=== PATIENT | female | born 1990 | race Caucasian/White ===

== ENCOUNTER 2019-09-23 06:06 | Emergency (ER) | payer OTHER ==
[~2019-09-23] VITALS: Ht 152.4 cm; Wt 63.5 kg
[~2019-09-23 06:06] MED LIST: AUGMENTIN 875875 M1 PO; CIPROFLOXACIN500 M1 PO; LORTABELXR PO; NOHOMEMEDICATIONS; PEPCID PO; ZOFRAN ODT4 MG PO
[2019-09-23] MEDS ORDERED: DOXYCYCLINE 10100 MG PO (07:32)
[2019-09-23 07:53] VITALS: BP 117/77
== END 2019-09-23 07:54 | disposition home or self-care (01) ==
LOC: M.ERS 06:06
DX: M25.441 Effusion, right hand (principal); M79.644 Pain in right finger(s); Z91.040 Latex allergy status